=== PATIENT | female | born 1965 | race Caucasian/White ===

== ENCOUNTER 2022-11-23 10:15 | Outpatient (CLI) | payer OTHER, MEDICARE | END 2022-11-23 10:16 | disposition home or self-care (01) | LOC: PET 10:15 | PROVIDERS: ATTEND Internal Medicine Hematology & Oncology | DX: C50.112 Malignant neoplasm of central portion of left female breast (principal); C79.51 Secondary malignant neoplasm of bone | CPT/HCPCS: 78815; A9552 ==

== ENCOUNTER 2023-05-15 08:17 | Outpatient (CLI) | payer OTHER, MEDICARE | END 2023-05-15 08:18 | disposition home or self-care (01) | LOC: PET 08:17 | PROVIDERS: ATTEND Internal Medicine Hematology & Oncology | DX: C50.112 Malignant neoplasm of central portion of left female breast (principal); C79.51 Secondary malignant neoplasm of bone; J98.4 Other disorders of lung; M25.851 Other specified joint disorders, right hip | CPT/HCPCS: 78815; A9552 ==

== ENCOUNTER 2024-03-26 08:45 | Outpatient (CLI) | payer OTHER, MEDICARE | END 2024-03-26 08:46 | disposition home or self-care (01) | LOC: PET 08:45 | PROVIDERS: ATTEND Internal Medicine Hematology & Oncology | DX: C50.112 Malignant neoplasm of central portion of left female breast (principal); C79.51 Secondary malignant neoplasm of bone | CPT/HCPCS: 78815; A9552 ==

== ENCOUNTER 2025-03-06 08:00 | Outpatient (CLI) | payer OTHER | END 2025-03-06 08:01 | disposition home or self-care (01) | LOC: PET 08:00 | PROVIDERS: ATTEND Internal Medicine Hematology & Oncology | DX: D70.8 Other neutropenia (principal); C50.112 Malignant neoplasm of central portion of left female breast; C79.51 Secondary malignant neoplasm of bone | CPT/HCPCS: 78815; A9552 ==

== ENCOUNTER 2025-06-29 09:30 | Outpatient (CLI) | payer OTHER | END 2025-06-29 09:31 | disposition home or self-care (01) | LOC: PET 09:30 | PROVIDERS: ATTEND Internal Medicine Hematology & Oncology | DX: D70.8 Other neutropenia (principal); C50.112 Malignant neoplasm of central portion of left female breast; C79.51 Secondary malignant neoplasm of bone | CPT/HCPCS: 78815; A9552 ==

== ENCOUNTER 2025-07-15 08:26 | Outpatient (CLI) | payer OTHER ==
[2025-07-15] MEDS ORDERED: Iopamidol 370 76% 100 ML VIAL ONE (09:16)
== END 2025-07-15 08:27 | disposition home or self-care (01) ==
LOC: CT 08:26
PROVIDERS: ATTEND Internal Medicine Hematology & Oncology
DX: C50.112 Malignant neoplasm of central portion of left female breast (principal); C79.51 Secondary malignant neoplasm of bone; D70.8 Other neutropenia; J98.4 Other disorders of lung; J98.11 Atelectasis; M89.9 Disorder of bone, unspecified
CPT/HCPCS: 71260